=== PATIENT | female | born 1995 | race Caucasian/White ===

== ENCOUNTER 2016-05-22 09:28 | Emergency (ER) | payer OTHER ==
[~2016-05-22] VITALS: Ht 162.6 cm; Wt 67.8 kg
[2016-05-22 09:37] VITALS: TEMP 37.4; Ht 162.6 cm; Wt 67.8 kg
[2016-05-22] MEDS ORDERED: SODIUM CHLORIDE 0.9% 1000ML 1,000 ML IV ONE (10:01)
[2016-05-22] MEDS ORDERED: SODIUM CHLORIDE 0.9% 1000ML 1,000 ML IV STA ×2 (10:01→11:40)
--- NOTE | 2016-05-22 10:21 | EMERGENCY ROOM VISIT NOTE ---
History Report prepared by Shari: [place] Marie Under the Supervision of: Dr. Federico Silver M.D. First contact with patient: 09:49 Chief Complaint: VOMITING Stated Complaint: THROWING UP 12+HRS, SHARP PAIN IN STOMACH History of Present Illness The patient is a 20 year old female who presents to the Emergency Room with complaints of persistent vomiting that began 12 hours ago. She currently rates her discomfort as a 5/10 in severity. The patient states that she has a history of this in the past. She states that she has had several tests done in the past that all came back normal for her symptoms in the past. The patient states that she has been experiencing sharp pains in her abdomen. She states that she is now vomiting bile, but denies any hematemesis. The patient states that as her abdominal pain worsens she notes chest pain and shortness of breath. She states that she had an episode of diarrhea last evening. The patient states that her and her parents consulted her PCP regarding her symptoms and notes that she was instructed to come the emergency department for further evaluation due to her history. She denies any chance of , noting that she is currently on her normal menstrual cycle. The patient denies any headache, rash, recent weight loss or weight gain, recent strange food intake, or recent travel. She states that her roommate is currently sick with a sinus infection. The patient notes that she has a history of two knee surgeries. Source of History: patient Onset: 12 hours ago Position: other (global) Symptom Intensity: 5/10 Quality: other (vomiting) Timing: other (persistent) Associated Symptoms: + SOB, + abdominal pain, + chest pain, + diarrhea, No headache, No rash Review of Systems See HPI for pertinent positives & negatives. A total of 10 systems reviewed and were otherwise negative. Past Medical & Surgical Medical Problems: (1) Asthma Surgical Problems: (1) History of knee surgery (2) Hx of knee surgery Old medical records were reviewed. Nurse's notes were reviewed and I agree with. 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 Normal speech HEENT: Normal cephalic atraumatic. Pupils are equal round and reactive to light. Sclerae anicteric. Extraocular movements are intact. Oropharynx is pink with moist mucous membranes. No swelling of the mouth lips or tongue. Neck: Supple with a midline trachea. No meningeal signs or stiffness, no JVD or bruits. No Stridor. Chest: Clear to auscultation bilaterally. No wheezes or rhonchi. No increased work of breathing. Heart: regular rate and rhythm. Abdomen: Minimally diffusely tender, no rebound, guarding, or peritonitis. Negative Liriano's sign. Extremities: No cyanosis clubbing or edema. No calf tenderness or assymetry Spine/Back. Non tender to palpation. No CVA tenderness Skin: Good turgor without rashes. Neurologic exam: Cranial nerves two through 12 are intact. Motor and sensation are intact and symmetrical throughout. Medical Decision & Procedures Laboratory Results 05/22/16 10:25 Red Blood Count 4.83, Mean Corpuscular Volume 84.7, Mean Corpuscular Hemoglobin 29.2, Mean Corpuscular Hemoglobin Concent 34.5, Mean Platelet Volume 9.6, Neutrophils (%) (Auto) 93.0, Lymphocytes (%) (Auto) 2.6, Monocytes (%) (Auto) 3.9, Eosinophils (%) (Auto) 0.2, Basophils (%) (Auto) 0.1, Neutrophils # (Auto) 9.25, Lymphocytes # (Auto) 0.26, Monocytes # (Auto) 0.39, Eosinophils # (Auto) 0.02, Basophils # (Auto) 0.01 05/22/16 10:25 Test 05/22/16 10:25 05/22/16 12:15 White Blood Count 9.95 K/uL (4.8-10.8) Red Blood Count 4.83 M/uL (4.2-5.4) Hemoglobin 14.1 g/dL (12.0-16.0) Hematocrit 40.9 % (37-47) Mean Corpuscular Volume 84.7 fL (80-100) Mean Corpuscular Hemoglobin 29.2 pg (25-34) Mean Corpuscular Hemoglobin Concent 34.5 g/dl (32-36) Platelet Count 318 K/uL (130-400) Mean Platelet Volume 9.6 fL (7.4-10.4) Neutrophils (%) (Auto) 93.0 % Lymphocytes (%) (Auto) 2.6 % Monocytes (%) (Auto) 3.9 % Eosinophils (%) (Auto) 0.2 % Basophils (%) (Auto) 0.1 % Neutrophils # (Auto) 9.25 K/uL (1.4-6.5) Lymphocytes # (Auto) 0.26 K/uL (1.2-3.4) Monocytes # (Auto) 0.39 K/uL (0.11-0.59) Eosinophils # (Auto) 0.02 K/uL (0-0.5) Basophils # (Auto) 0.01 K/uL (0-0.2) RDW Standard Deviation 40.2 fL (36.4-46.3) RDW Coefficient of Variation 12.9 % (11.5-14.5) Immature Granulocyte % (Auto) 0.2 % Immature Granulocyte # (Auto) 0.02 K/uL (0.00-0.02) Anion Gap 10.0 mmol/L (3-11) Est Creatinine Clear Calc Drug Dose 128.5 ml/min Estimated GFR () 146.1 Estimated GFR (Non- 126.0 BUN/Creatinine Ratio 21.5 (10-20) Calcium Level 8.3 mg/dl (8.5-10.1) Total Bilirubin 0.6 mg/dl (0.2-1) Direct Bilirubin 0.2 mg/dl (0-0.2) Aspartate Amino Transf (AST/SGOT) 13 U/L (15-37) Alanine Aminotransferase (ALT/SGPT) 17 U/L (12-78) Alkaline Phosphatase 40 U/L (45-117) Total Protein 7.9 gm/dl (6.4-8.2) Albumin 4.0 gm/dl (3.4-5.0) Lipase 105 U/L (73-393) Human Chorionic Gonadotropin, Qual NEG (NEG) Urine Color YELLOW Urine Appearance CLEAR (CLEAR) Urine pH 6.0 (4.5-7.5) Urine Specific [place] 1.016 (1.000-1.030) Urine Protein NEG (NEG) Urine Glucose (UA) NEG (NEG) Urine Ketones 1+ (NEG) Urine Occult Blood NEG (NEG) Urine Nitrite NEG (NEG) Urine Bilirubin NEG (NEG) Urine Urobilinogen NEG (NEG) Urine Leukocyte Esterase NEG (NEG) Laboratory studies as stated above per my review. Medications Administered Medications (Trade) Dose Ordered Sig/Robby Route Start Time Stop Time Status Last Admin Dose Admin Sodium Chloride 1,000 ml @ 999 mls/hr Q1H1M STAT IV 05/22/16 10:01 05/22/16 11:01 DC 05/22/16 10:01 999 MLS/HR Sodium Chloride 1,000 ml @ 200 mls/hr Q5H ONCE IV 05/22/16 10:01 05/22/16 15:00 05/22/16 12:11 200 MLS/HR Sodium Chloride (Nss 1000ml) 1,000 ml @ 999 mls/hr Q1H1M STAT IV 05/22/16 11:40 05/22/16 12:40 DC 05/22/16 11:40 999 MLS/HR Ketorolac Tromethamine (Toradol Inj) 30 mg NOW STAT IV 05/22/16 11:40 05/22/16 11:41 DC 05/22/16 12:17 30 MG Ondansetron HCl (Zofran Inj) 4 mg NOW STAT IV 05/22/16 11:40 05/22/16 11:41 DC 05/22/16 12:17 4 MG ED Course 0950: Past medical records reviewed. The patient was evaluated in room B5, and a complete history and physical examination were performed. 1001: Ordered Sodium Chloride 1000 ml @ 200 mls/hr IV, Sodium Chloride 1000 ml @ 999 mls/hr IV. 1140: Ordered Zofran Inj 4 mg IV, Toradol Inj 30 mg IV, Sodium Chloride 1000 ml @ 999 mls/hr IV. 1248: I reevaluated the patient and she is feeling much better. I rechecked her abdomen and it is benign and non-tender. I discussed the exam findings with her and I discussed the treatment plan. She verbalized complete understanding and agreement. She is ready to go home shortly. Medical Decision Differentials include, but are not limited to; dehydration, electrolyte or metabolic abnormality, infection. This patient comes in as described above. she's had multiple episodes of vomiting. She's also had a few episodes of diarrhea. She has had some GI issues in the past is extensive workup including CAT scans and it sounds acute endoscopy as well. She tells me that they do not have a definitive cause for symptoms and she's not has felt like this for about 2 years. She looks well on exam .she has no peritonitis IV access established while she was here she given 2 L IV normal saline. She was given Zofran 4 mg IV as well as IV Toradol and additional IV Zofran after these measures she felt significantly better and was asymptomatic. She had no further vomiting. I reassess her abdomen remains benign and nontender she's no white count or fever to suggest infection. She's not . She cesar nothing to suggest UTI and nothing to suggest liver, gallbladder, or pancreas disease. Clinically, she does not suggest appendicitis or surgical process. I think most likely this is a viral illness possibly gastritis or even gastroparesis. She is to rest and drink plenty of fluids. She was given a prescription for Zofran that she can use if needed for nausea or vomiting. She was encouraged to return if: increasing pain, worsening of symptoms, fever or chills, any new problems or concerns. She was happy with the plan and was discharged to home. Impression Primary Impression: Vomiting Additional Impression: Dehydration Scribe Attestation The scribe's documentation has been prepared under my direction and personally reviewed by me in its entirety. I confirm that the note above accurately reflects all work, treatment, procedures, and medical decision making performed by me. Departure Information Dispostion Home / Self-Care Prescriptions Ondasetron Odt (ZOFRAN ODT) 4 Mg Tab 4 MG SL Q6H for Nausea, #14 TAB Prov: Federico Silver M.D. 05/22/16 Forms HOME CARE DOCUMENTATION FORM, IMPORTANT VISIT INFORMATION Patient Instructions My [facility] Additional Instructions Rest. Drink plenty of fluids. Mild diet. Use Zofran 4 mg under the tongue every 6 hours if needed for nausea or vomiting. Return if: Increasing pain, not tolerating fluids, worsening of symptoms, fever chills, any new problems or concerns. Problem Qualifiers
[2016-05-22 10:52] LABS: BASO % 0.1 %; BASO ABS # 0.01 K/uL (0-0.2); COMPLETE YES; EOS % 0.2 %; HEMATOCRIT 40.9 % (37-47); IG% 0.2 %; LYMPH % 2.6 %; LYMPH ABS # 0.26 K/uL (1.2-3.4); MEAN CELL VOLUME 84.7 fL (80-100); MEAN CORPUSCULAR HEMOGLOBIN 29.2 pg (25-34); MEAN CORPUSCULAR HGB CONC 34.5 g/dl (32-36); MEAN PLATELET VOLUME 9.6 fL (7.4-10.4); MONO % 3.9 %; PLATELET COUNT 318 K/uL (130-400); RED BLOOD COUNT 4.83 M/uL (4.2-5.4); WHITE BLOOD COUNT 9.95 K/uL (4.8-10.8)
[2016-05-22 11:12] LABS: BUN/CREATININE RATIO 21.5 (10-20); CALCIUM 8.3 mg/dl (8.5-10.1); CREATININE 0.65 mg/dl (0.60-1.20); POTASSIUM 3.3 mmol/L (3.5-5.1)
[2016-05-22 11:13] LABS: PREG INTERNAL NEGATIVE QC NEG CLEAR BACKGROUND; PREG INTERNAL POSITIVE QC POS CONTROL LINE
[2016-05-22] MEDS ORDERED: ONDANSETRON INJ 2 MG/ML 2 ML VIAL IV STA (11:40)
[2016-05-22] MEDS ORDERED: KETOROLAC TROMETHAMINE 30 MG/ML VIAL IV STA (11:40)
[2016-05-22 12:44] LABS: URINE APPEARANCE CLEAR (CLEAR); URINE BILIRUBIN NEG (NEG); URINE COLOR YELLOW; URINE NITRITE NEG (NEG); URINE SPECIFIC GRAVITY 1.016 (1.000-1.030); UROBILINOGEN NEG (NEG)
[2016-05-22] MEDS ORDERED: ONDA4TAB10 SL (12:50)
[2016-05-22 12:54] LABS: MANUAL MICROSCOPIC REQUIRED? NO; REVIEW REQ? NO
[2016-05-22 13:53] VITALS: BP 110/62; PULSE 80; O2SAT 99
== END 2016-05-22 13:55 | disposition home or self-care (01) ==
LOC: C.EDB 09:29
DX: R11.10 Vomiting, unspecified (principal); E86.0 Dehydration; J45.909 Unspecified asthma, uncomplicated; Z98.890 Other specified postprocedural states; Z82.49 Family history of ischemic heart disease and other diseases of the circulatory system; Z80.9 Family history of malignant neoplasm, unspecified